=== PATIENT | male | born 1990 | race Caucasian/White ===

== ENCOUNTER 2017-09-24 11:38 | Emergency (ER) | payer BC ==
[~2017-09-24] VITALS: Ht 185.4 cm; Wt 79.4 kg
[2017-09-24] MEDS ORDERED: Synthroid,Lev200 MCG PO (12:09)
[2017-09-24] MEDS ORDERED: Motrin,Rufen800 MG PO (14:06)
[2017-09-24] MEDS ORDERED: CYCLOBENZAPRINE5 M3 PO (14:06)
== END 2017-09-24 15:01 | disposition home or self-care (01) ==
LOC: ED 11:38
DX: S39.012A Strain of muscle, fascia and tendon of lower back, initial encounter (principal); Z79.899 Other long term (current) drug therapy; W07.XXXA Fall from chair, initial encounter; Y93.89 Activity, other specified; Y92.89 Other specified places as the place of occurrence of the external cause; Y99.8 Other external cause status

== ENCOUNTER 2019-04-20 12:12 | Emergency (ER) | payer OTHER ==
[~2019-04-20] VITALS: Wt 81.6 kg
[~2019-04-20 12:12] MED LIST: CYCLOBENZAPRINE5 M3 PO; Motrin,Rufen800 MG PO; Synthroid,Lev200 MCG PO
== END 2019-04-20 16:38 | disposition home or self-care (01) ==
LOC: ED 12:12
DX: M54.16 Radiculopathy, lumbar region (principal); Z79.899 Other long term (current) drug therapy

== ENCOUNTER → 2021-02-05 | Outpatient (CLI) | payer OTHER | END | disposition home or self-care (01) | LOC: MRI 14:00 | PROVIDERS: ATTEND Family Medicine | DX: H53.8 Other visual disturbances (principal); R63.4 Abnormal weight loss ==

== ENCOUNTER → 2021-02-22 | Outpatient (CLI) | payer OTHER ==
[2021-02-22 12:35] LABS: ALBUMIN 4.2 gm/dl (3.1-4.5); ALKALINE PHOSPHATASE 60 U/L (45-117); BUN 14 mg/dl (7-24); CHLORIDE 111 mmol/L (98-107); CREATININE 0.93 mg/dL (0.70-1.30); FREE T4 0.92 ng/dl (0.76-1.46); POTASSIUM 4.2 mmol/L (3.5-5.1); SGOT/AST 15 IU/L (3-35); SGPT/ALT 32 U/L (12-78); SODIUM 144 mmol/L (136-145); TOTAL PROTEIN 7.5 gm/dL (6.4-8.2)
[2021-02-23 15:07] LABS: THYROGLOBULIN ANTIBODY 23.5 IU/mL (0.0-0.9)
== END | disposition home or self-care (01) ==
LOC: LAB 11:36
PROVIDERS: ATTEND Family Medicine
DX: E03.9 Hypothyroidism, unspecified (principal); R63.4 Abnormal weight loss; H57.10 Ocular pain, unspecified eye

== ENCOUNTER → 2021-03-21 | Outpatient (CLI) | payer OTHER | END | disposition home or self-care (01) | LOC: US 08:30 | PROVIDERS: ATTEND Family Medicine | DX: E06.3 Autoimmune thyroiditis (principal); E07.89 Other specified disorders of thyroid ==

== ENCOUNTER → 2021-05-18 | Outpatient (CLI) | payer OTHER ==
[2021-05-18 12:48] LABS: ALBUMIN 4.2 gm/dl (3.1-4.5); ALKALINE PHOSPHATASE 56 U/L (45-117); BUN 13 mg/dl (7-24); CHLORIDE 110 mmol/L (98-107); CREATININE 0.85 mg/dL (0.70-1.30); FREE T4 0.95 ng/dl (0.76-1.46); POTASSIUM 3.7 mmol/L (3.5-5.1); SGOT/AST 14 IU/L (3-35); SGPT/ALT 25 U/L (12-78); SODIUM 142 mmol/L (136-145); TOTAL PROTEIN 7.4 gm/dL (6.4-8.2)
[2021-05-18 12:54] LABS: THYROID STIM HORMONE (HS) 0.486 uIU/ml (0.358-4.75)
[2021-05-19 15:06] LABS: t-TRANSGLUTAMINASE (tTG) IGA <2 U/mL (0-3)
[2021-05-23 22:05] LABS: TESTOSTERONE FREE, (DIRECT) 14.4 pg/mL (8.7-25.1)
== END | disposition home or self-care (01) ==
LOC: LAB 12:12
PROVIDERS: ATTEND Internal Medicine Endocrinology, Diabetes & Metabolism
DX: E55.9 Vitamin D deficiency, unspecified (principal); E03.9 Hypothyroidism, unspecified; R68.82 Decreased libido; R63.4 Abnormal weight loss

== ENCOUNTER → 2022-01-10 | Outpatient (CLI) | payer OTHER | END | disposition home or self-care (01) | LOC: US 12:55 | PROVIDERS: ATTEND Family Medicine | DX: N50.3 Cyst of epididymis (principal); N50.89 Other specified disorders of the male genital organs ==

== ENCOUNTER → 2022-11-04 | Outpatient (CLI) | payer OTHER ==
[2022-11-04 13:10] LABS: FREE T4 1.23 ng/dl (0.89-1.76); THYROID STIM HORMONE (HS) 2.852 uIU/ml (0.550-4.780)
== END | disposition home or self-care (01) ==
LOC: LAB 12:09
PROVIDERS: ATTEND Family Medicine
DX: E29.1 Testicular hypofunction (principal)